=== PATIENT | female | born 1945 | race Asian ===

== ENCOUNTER 2023-03-19 17:39 | Emergency (ER) | payer MEDICARE, OTHER ==
[~2023-03-19] VITALS: Ht 157.5 cm; Wt 63.6 kg
[~2023-03-19 17:39] MED LIST: AMLO-258 PO; ATOR40TA28 PO; EMPA25TA3 PO; ESOM20CA31 PO; GLIP5TAB11 PO; LOSA-382 PO; METF-446 PO; MULT1CAP32 PO; NEBI5TAB2 PO; SITA100 PO
[2023-03-19 17:41] VITALS: TEMP 98.3
[2023-03-19 18:07] VITALS: BP 114/62; PULSE 62; RESP 18
[2023-03-19] MEDS ORDERED: FLUT16H NASAL (18:27)
[2023-03-19] MEDS ORDERED: MULT-660 PO (18:27)
[2023-03-19] MEDS ORDERED: LORA10TA7 PO (18:27)
[2023-03-19] MEDS ORDERED: TraMADol HCL 50 MG TABLET PO ONE (18:30)
== END 2023-03-19 19:42 | disposition home or self-care (01) ==
LOC: EMS 17:39
DX: M25.512 Pain in left shoulder (principal); M25.552 Pain in left hip; M19.90 Unspecified osteoarthritis, unspecified site; E11.9 Type 2 diabetes mellitus without complications; E78.00 Pure hypercholesterolemia, unspecified; I10 Essential (primary) hypertension; Z90.710 Acquired absence of both cervix and uterus; Z88.6 Allergy status to analgesic agent; Z88.2 Allergy status to sulfonamides; Z88.8 Allergy status to other drugs, medicaments and biological substances
CPT/HCPCS: 82962; 99283

== ENCOUNTER 2024-03-30 12:19 | Emergency (ER) | payer OTHER ==
[~2024-03-30] VITALS: Ht 162.6 cm; Wt 64.0 kg
[~2024-03-30 12:19] MED LIST changes: -EMPA25TA3 PO; +FLUT16H NASAL; -GLIP5TAB11 PO; +GLIP5TAB15 PO; +LORA10TA7 PO; +MULT-660 PO; -MULT1CAP32 PO; +NEBI5TAB11 PO; -NEBI5TAB2 PO
[2024-03-30 12:55] LABS: BASOPHILS % (AUTO) 0.4 % (0.0-2.0); EOSINOPHILS % (AUTO) 2.3 % (1.0-6.0); HEMATOCRIT 37.8 % (36-46); HEMOGLOBIN 12.5 g/dL (12.0-16.0); LYMPHOCYTES # (AUTO) 1.6 K/uL (1.0-4.8); LYMPHOCYTES % (AUTO) 19.5 % (22.0-44.0); MEAN CORPUSCULAR VOLUME 88 fL (80-100); MONOCYTES # (AUTO) 0.5 K/uL (0.1-1.0); MONOCYTES % (AUTO) 6.4 % (2.0-9.0); NEUTROPHILS % (AUTO) 71.4 % (40.0-70.0); PLATELET COUNT (AUTO) 292 K/uL (150-450); RED BLOOD CELL COUNT(AUTO) 4.29 MIL/uL (4.00-5.20); RED CELL DISTRIBUTION WIDTH 13.8 % (11.5-14.5); WHITE BLOOD COUNT (AUTO) 8.4 K/uL (4.5-11.0)
[2024-03-30 12:59] LABS: ANION GAP 9 mmol/L (8-16); CALCIUM, TOTAL 9.6 mg/dL (8.8-10.5); CARBON DIOXIDE 28 mmol/L (22-29); CHLORIDE 91 mmol/L (98-107); CREATININE 0.85 mg/dL (0.60-1.30); GLOMERULAR FILTR. RATE CALC > 60 mL/min (>60); GLUCOSE,RANDOM 320 mg/dL (70-110); POTASSIUM 3.9 mmol/L (3.5-5.1); SODIUM SERUM 128 mmol/L (136-145); UREA NITROGEN, BLOOD 13 mg/dL (7-18)
[2024-03-30 13:09] VITALS: TEMP 98.4
[2024-03-30] MEDS: SODIUM CHLORIDE 0.9% 1,000 ML IV ONE (13:22)
[2024-03-30] MEDS: INSULIN REGULAR, HUMAN 100 UNITS/ML IVP ONE (14:54)
[2024-03-30 15:15] VITALS: BP 131/64; PULSE 68; RESP 16
[2024-03-30 16:15] LABS: POTASSIUM 3.7 mmol/L (3.5-5.1)
[2024-03-30 17:06] LABS: GLUCOMETER DEV NAME(LOC) ERT.5; GLUCOSE,POINT OF CARE 107 MG/DL (70-110)
[2024-03-30 17:06] LABS: GLUCOMETER DEV NAME(LOC) ERT.5; GLUCOSE,POINT OF CARE 53 MG/DL (70-110)
== END 2024-03-30 17:25 | disposition home or self-care (01) ==
LOC: EMS 12:26
DX: E11.65 Type 2 diabetes mellitus with hyperglycemia (principal); E87.1 Hypo-osmolality and hyponatremia; M19.90 Unspecified osteoarthritis, unspecified site; E78.00 Pure hypercholesterolemia, unspecified; I10 Essential (primary) hypertension; Z90.710 Acquired absence of both cervix and uterus; Z88.2 Allergy status to sulfonamides; Z88.6 Allergy status to analgesic agent; Z88.8 Allergy status to other drugs, medicaments and biological substances
CPT/HCPCS: 99283; 96374; 96361; 80048; 82962; 85025; 36415; 93005; 80051; J1815; J7030